=== PATIENT | male | born 1980 | race Caucasian/White ===

== ENCOUNTER 2017-09-23 12:27 | Emergency (ER) | payer SELFPAY ==
[~2017-09-23] VITALS: Ht 172.7 cm; Wt 77.2 kg
[~2017-09-23 12:27] MED LIST: HYDR-3533 PO; IBUP800T23 PO; LISI-363 PO; MEDR4PAK3 PO; METH750T2 PO
[2017-09-23 12:36] VITALS: BP 170/102; PULSE 78; RESP 20; TEMP 98.3; O2SAT 96
[2017-09-23] MEDS ORDERED: KETOROLAC TROMETHAMINE 60 MG/2 ML (IM) VIAL IM ONE (13:30)
[2017-09-23] MEDS ORDERED: LISI10TA3 PO (13:35)
[2017-09-23] MEDS ORDERED: AMOX500T PO (13:35)
--- NOTE | 2017-09-23 13:36 | PD ---
HPI Chief Complaint: Oral / Dental Pain or Problem Time Seen by Provider: 13:36 Travel History International Travel<30 days: No Contact w/Intl Traveler<30days: No Traveled to known affect area: No History of Present Illness HPI 37-year-old male here with left upper dental pain 3 days. Patient denies fever or chills. He reports radius dental infections and abscesses. Symptom severity is moderate. No alleviating factors. No other symptoms. PFSH Past Medical History Medical History: Denies Significant Hx Diminished Hearing: No Hypertension: Yes Past Surgical History Other Surgery: Yes (staph infection removed, right arm) Social History Alcohol Use: Yes Tobacco Use: Yes (10/24 ppd) Substance Use: Yes (MARIJUANA) Allergies-Medications (Allergen,Severity, Reaction): Coded Allergies: No Known Allergies (Unverified Adverse Reaction, Unknown, 09/23/17) Reported Meds & Prescriptions Reported Meds & Active Scripts Active Lisinopril 10 Mg Tab 10 Mg PO DAILY Amoxicillin 500 Mg Tab 500 Mg PO TID 10 Days Review of Systems Except as stated in HPI: all other systems reviewed are Neg General / Constitutional: No: Fever Eyes: No: Visual changes HENT: No: Headaches Cardiovascular: No: Chest Pain or Discomfort Respiratory: No: Shortness of Breath Gastrointestinal: No: Abdominal Pain Physical Exam Narrative GENERAL: Alert well-appearing male SKIN: Warm and dry. HEAD: Normocephalic. EYES: No scleral icterus. No injection or drainage. MOUTH: Widespread dental decay with decayed and fractured tooth #15 and 18 with mild surrounding gum erythema. NECK: Supple, trachea midline. No JVD or lymphadenopathy. CARDIOVASCULAR: Regular rate and rhythm without murmurs, gallops, or rubs. RESPIRATORY: Breath sounds equal bilaterally. No accessory muscle use. GASTROINTESTINAL: Abdomen soft, non-tender, nondistended. MUSCULOSKELETAL: No cyanosis, or edema. BACK: Nontender without obvious deformity. No CVA tenderness. Data Data Last Documented VS Vital Signs Date Time Temp Pulse Resp B/P (MAP) Pulse Ox O2 Delivery O2 Flow Rate FiO2 09/23/17 12:36 98.3 78 20 170/102 (124) 96 Orders Orders Ketorolac Inj (Toradol Inj) (09/23/17 13:30) Ed Discharge Order (09/23/17 13:36) [facility] Medical Decision Making Medical Screen Exam Complete: Yes Emergency Medical Condition: Yes Differential Diagnosis Dental caries, dental abscess, periodontal disease Narrative Course 37 year old male with widespread dental decay and dental pain 3 days. His vital signs are stable. He is well-appearing. He is requesting a refill for his lisinopril for his hypertension. He currently has no insurance and is having difficult time finding a primary care. He will be given a prescription for his lisinopril. He was given resource information for dental clinics in the area. Diagnosis Primary Impression: Pain, dental Referrals: [facility] Additional Instructions: Take the antibiotics as prescribed. Take your blood pressure medication as prescribed. Follow-up with the [facility]. Continue [id number] Tylenol or Motrin as needed for pain. Scripts Lisinopril (Lisinopril) 10 Mg Tab 10 MG PO DAILY, #30 TAB 0 Refills Prov: Ary Mora 09/23/17 Amoxicillin (Amoxicillin) 500 Mg Tab 500 MG PO TID for Infection for 10 Days, TAB 0 Refills Prov: Ary Mora 09/23/17 Disposition: 01 DISCHARGE HOME Condition: Stable Ary Mora Sep 23, 2017 13:36
== END 2017-09-23 13:52 | disposition home or self-care (01) ==
LOC: PHEFT 12:27
DX: K08.89 Other specified disorders of teeth and supporting structures (principal); I10 Essential (primary) hypertension; F17.200 Nicotine dependence, unspecified, uncomplicated
CPT/HCPCS: 96372; 99284; J1885